=== PATIENT | female | born 1950 | race Caucasian/White ===

== ENCOUNTER → 2018-01-27 | Outpatient (CLI) | payer MEDICARE, OTHER ==
[~2018-01-27] MED LIST: NORVASC10 MG
== END ==
LOC: M.RAD 12:53
DX: Z12.31 Encounter for screening mammogram for malignant neoplasm of breast (principal)

== ENCOUNTER → 2018-05-24 | Outpatient (CLI) | payer MEDICARE, OTHER | LOC: M.ULTRA 10:45 | DX: M25.561 Pain in right knee (principal) ==

== ENCOUNTER → 2018-06-28 | Outpatient (CLI) | payer MEDICARE, OTHER | LOC: M.RAD 10:00 | DX: M17.0 Bilateral primary osteoarthritis of knee (principal) ==

== ENCOUNTER → 2019-03-16 | Outpatient (CLI) | payer MEDICARE, OTHER | LOC: M.RAD 10:32 | DX: R05 Cough (principal); R07.9 Chest pain, unspecified ==

== ENCOUNTER 2019-09-28 05:19 | Emergency (ER) | payer MEDICARE, OTHER ==
[~2019-09-28] VITALS: Ht 157.5 cm; Wt 40.8 kg
[2019-09-28] MEDS ORDERED: ALPRAZOLAM 0.0.25 M1 PO (05:28)
[2019-09-28] MEDS ORDERED: LORCET 5-325 M1 EACH PO (05:59)
[2019-09-28 06:09] VITALS: BP 133/63
== END 2019-09-28 06:09 | disposition home or self-care (01) ==
LOC: M.ERS 05:19
DX: M79.671 Pain in right foot (principal); Z90.49 Acquired absence of other specified parts of digestive tract; Z90.710 Acquired absence of both cervix and uterus; Z88.0 Allergy status to penicillin; Z88.2 Allergy status to sulfonamides; Z88.6 Allergy status to analgesic agent

== ENCOUNTER 2019-10-11 21:07 | Emergency (ER) | payer MEDICARE, OTHER ==
[~2019-10-11] VITALS: Ht 160 cm; Wt 40.8 kg
[~2019-10-11 21:07] MED LIST changes: +ALPRAZOLAM 0.0.25 M1 PO; +LORCET 5-325 M1 EACH PO
[2019-10-11] MEDS ORDERED: TEMAZEPAM15 MG PO (21:20)
[2019-10-11] MEDS ORDERED: OMEPRAZOLE 20 M20 M1 PO (21:21)
[2019-10-11] MEDS ORDERED: MONTELUKAST SODI4 M1 PO (21:21)
[2019-10-11 22:07] LABS: ABSOLUTE BASOPHILS 0.1 thou/uL (0.0-0.2); ABSOLUTE LYMPHOCYTES 0.8 thou/uL (0.8-5.3); ABSOLUTE MONOCYTES 0.8 thou/uL (0.0-1.2); ABSOLUTE NEUTROPHILS 6.8 thou/uL (1.6-8.1); BASOPHILS 0.6 %; EOSINOPHILS 0.4 %; HEMATOCRIT 37.2 % (37.0-47.0); HEMOGLOBIN 12.9 gm/dL (12.0-15.0); MCH 33.9 pg (26.0-34.0); MCHC 34.8 g/dL (28.0-37.0); MCV 97.6 fL (80.0-100.0); MONOCYTES 9.1 %; MPV 7.7 fl. (7.2-11.1); NUCLEATED RBCS 0 /100WBC; PLATELET COUNT* 207 thou/uL (150-400); POLYS 80.9 %; RBC 3.81 mil/uL (4.20-5.00); RDW-CV 12.7 % (10.5-14.5); WBC 8.4 thou/uL (4.0-11.0)
[2019-10-11 22:14] LABS: CALCIUM 8.1 mg/dL (8.5-10.1); CREATININE 0.7 mg/dL (0.6-1.3); POTASSIUM 4.3 mmol/L (3.5-5.1)
[2019-10-11 22:17] LABS: INR 1.1; PROTIME 10.8 Seconds (9.20-11.50)
[2019-10-11 22:25] LABS: ALBUMIN 3.5 g/dL (3.4-5.0); TOTAL BILIRUBIN 0.3 mg/dL (<0.1-1.0); TOTAL PROTEIN 6.8 g/dL (6.4-8.2)
[2019-10-11] MEDS ORDERED: IBUPROFEN 400400 M1 PO (22:46)
[2019-10-11] MEDS ORDERED: AZITHROMYCIN 2250 MG PO (22:46)
[2019-10-11 22:51] VITALS: BP 133/68
--- NOTE | 2019-10-12 16:46 | EKG ---
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 : 1950 Requested By: Tali Jaeger Order Number: [id number] MD: Dar Walker Measurements Intervals [place] Rate: 99 P: 68 RI: 133 QRS: 51 QRSD: 74 T: 63 QT: 326 QTc: 419 Interpretive Statements Sinus rhythm Low voltage, extremity leads Compared to ECG 12/19/2007 06:00:37 Low QRS voltage now present Electronically Signed On 10-12-2019 16:45:21 CDT by Dar Walker [email or web address] <ELECTRONICALLY SIGNED> By: Dar Walker MD, [facility] 10/12/19 1645 24 24 Dar Walker MD, [facility] /EPI
== END 2019-10-11 22:52 | disposition home or self-care (01) ==
LOC: M.ERS 21:07
PROVIDERS: Personal Emergency Response Attendant
DX: J21.9 Acute bronchiolitis, unspecified (principal); Z90.710 Acquired absence of both cervix and uterus; Z98.890 Other specified postprocedural states; Z88.0 Allergy status to penicillin; Z88.6 Allergy status to analgesic agent; Z88.2 Allergy status to sulfonamides; Z79.899 Other long term (current) drug therapy

== ENCOUNTER → 2020-12-24 | Outpatient (CLI) | payer MEDICARE, OTHER ==
[~2020-12-24] MED LIST changes: +AZITHROMYCIN 2250 MG PO; +IBUPROFEN 400400 M1 PO; +MONTELUKAST SODI4 M1 PO; +OMEPRAZOLE 20 M20 M1 PO; +TEMAZEPAM15 MG PO
== END ==
LOC: M.RAD 08:36
PROVIDERS: ATTEND Family Medicine
DX: Z12.31 Encounter for screening mammogram for malignant neoplasm of breast (principal)